=== PATIENT | female | born 1960 | race Caucasian/White ===

== ENCOUNTER 2022-04-23 12:18 | Emergency (ER) | payer OTHER, SELFPAY ==
[2022-04-23 12:27] VITALS: BP 126/75; PULSE 74; RESP 12; TEMP 36.7; O2SAT 99
--- NOTE | 2022-04-23 13:17 | ED.GENADULT ---
HPI - General Adult General Chief complaint: Upper Respiratory Infection Stated complaint: Sore Throat Source: patient Mode of arrival: ambulatory Limitations: no limitations History of Present Illness HPI narrative: Patient presents for evaluation of sore throat for the last five days. She reports associated fever and an occasional cough. Symptoms started abuptly. No chills, nausea, vomiting or diarrhea. No recent sick contacts to her knowledge. She tried Chloraseptic spray that provided her with mild relief of her symptoms. No difficulty breathing or swallowing. She reports a hx of strep many years ago and this feels similar. She has some fatigue but thought this could be related to long COVID as she had COVID several months ago. Related Data Home Medications Medication Instructions Recorded Confirmed atorvastatin 40 mg tablet mg 04/23/22 febuxostat 80 mg tablet mg 04/23/22 furosemide 40 mg tablet mg 04/23/22 lisinopril 5 mg tablet mg 04/23/22 metoprolol succinate 25 mg mg PO 04/23/22 tablet,extended release 24 hr milnacipran 100 mg tablet (Savella) mg 04/23/22 montelukast 10 mg tablet mg 04/23/22 omeprazole 40 mg capsule,delayed mg 04/23/22 release phenobarbital 30 mg tablet mg 04/23/22 semaglutide 2 mg/dose (8 mg/3 mL) mg subcut 04/23/22 subcutaneous pen injector (Ozempic) tramadol 50 mg tablet mg 04/23/22 valacyclovir 1 gram tablet mg 04/23/22 Allergies Allergy/AdvReac Type Severity Reaction Status Date / Time allopurinol Allergy Severe FEVER, Verified 04/23/22 12:36 ITCHEY azathioprine Allergy Severe FLU SX, Verified 04/23/22 12:36 FEVER, ITCHEY, CHILLS cefaclor Allergy Severe HIVES Verified 04/23/22 12:36 ciprofloxacin Allergy Severe FLU SX, Verified 04/23/22 12:36 FEVER, CHILLS, ITCHEY levofloxacin Allergy Severe FLU SX, Verified 04/23/22 12:36 FEVER, CHILLS, ITCHEY sulfamethoxazole Allergy Severe FLU SX, Verified 04/23/22 12:36 trimethoprim Allergy Severe FLU Verified 04/23/22 12:36 SYMPTOMS NSAIDS (Non-Steroidal Allergy Intermediate POOR Verified 04/23/22 12:36 Anti-Inflamma KIDNEY FUNCTION carbamazepine Allergy Mild WIPED OUT Verified 04/23/22 12:36 WBC COUNT belimumab AdvReac Severe PROLONGED Verified 04/23/22 12:36 FATIGUE codeine AdvReac Severe GI UPSET Verified 04/23/22 12:36 AMMARETO Allergy Severe RINGING IN Uncoded 04/23/22 12:36 EARS, SYNCOPE Review of Systems Review of Systems: CONSTITUTIONAL: Reports fever and fatigue. Denies chills or sweats. EYES: Denies visual changes, redness, or discharge. ENT: Reports sore throat.Denies rhinorrhea, congestion, or otalgia. CARDIOVASCULAR: Denies chest pain, palpitations, or edema. RESPIRATORY: Reports cough. Denies shortness of breath. GASTROINTESTINAL: Denies abdominal pain, nausea, vomiting, or diarrhea. GENITOURINARY: Denies dysuria or hematuria. SKIN: Denies rash or itching. MUSCULOSKELETAL: Denies back pain, joint pain, or myalgia. NEUROLOGIC: Denies headache, numbness, dizziness, or weakness. PSYCHIATRIC: Denies anxiety or depression. [facility] Past Medical History Medical History SLE (systemic lupus erythematosus) Surgical History Surgical History No pertinent past surgical history Family History Family History Other Cerebrovascular accident Family history of arthritis Family history of gout Hypertension Social History Social History Smoking status: Never smoker Alcohol intake: current Substance use: never Living arrangements: with family Gender identity (if verbalized by the patient): Female Sexual Orientation (if Verbalized by the Patient): Straight or Heterosexua
== END 2022-04-23 13:29 | disposition home or self-care (01) ==
PROVIDERS: Emergency Provider Nurse Practitioner
DX: J02.0 Streptococcal pharyngitis (principal); M32.9 Systemic lupus erythematosus, unspecified
CPT/HCPCS: 87880; 99213; G0463